=== PATIENT | male | born 1940 | race Caucasian/White ===

== ENCOUNTER 2016-03-29 01:57 | Inpatient (IN) | payer OTHER ==
[~2016-03-29] VITALS: Ht 157.5 cm; Wt 111.5 kg
[~2016-03-29 01:57] MED LIST: ASPIR-LOW81 MG PO; ASPIRIN EC325 MG PO; ASPIRIN325 MG PO; COUMADIN2 MG PO; FAMOTIDINE40 MG PO; FOSRENOL1000 MG PO; FUROSEMIDE40 MG PO; LANTUS 10100 UNITS/ SC; LASIX40 MG PO; LIPITOR80 MG PO; LISINOPRIL20 MG PO; LISINOPRIL40 MG PO; LOSARTAN POTASS25 MG PO; METOPROLOL SUC100 MG PO; METOPROLOL TART25 MG PO; NIFEDIPINE ER30 MG PO; NOVOLOG PE100 UNITS/ SC; PLAVIX75 MG PO; SENSIPAR30 MG PO; TOPROL XL100 MG PO; VITAMIN D31000 UNIT PO
[2016-03-29 03:01] LABS: BASOPHIL COUNT 0.1 K/uL (0-0.1); EOSINOPHIL (%) 4.4 % (0-5); EOSINOPHIL COUNT 0.1 K/uL (0-0.3); HEMATOCRIT 28.8 % (38.0-50.0); IMMATURE GRANULOCYTE (%) 0.3 % (0.0-0.7); IMMATURE GRANULOCYTE COUNT 0.1 K/uL; LYMPHOCYTE COUNT 0.5 K/uL (1.0-2.8); MCH 33.6 PG (29.0-34.0); MCHC 34.7 G/DL (30.0-36.0); MCV 96.6 FL (86-99); MONOCYTE (%) 13.9 % (3-12); MONOCYTE COUNT 0.4 K/uL (0-0.8); NEUTROPHIL (%) 63.1 % (45-76); NEUTROPHIL COUNT 1.9 K/uL (1.8-6.4); PLATELET COUNT 109 K/uL (156-360); RBC DIS.WIDTH-CV 12.9 % (11.8-14.6); RBC DIS.WIDTH-SD 43.4 % (39-53); RED BLOOD COUNT 2.98 M/uL (4.00-5.50)
[2016-03-29 03:10] LABS: CHLORIDE 94 mEq/L (99-109); POTASSIUM 4.3 mEq/L (3.7-5.4); SODIUM 136 mEq/L (136-147)
[2016-03-29 03:12] LABS: GLUCOSE 343 mg/dL (70-99)
[2016-03-29 03:14] LABS: ANION GAP 20 MEQ/L (2-14)
[2016-03-29 03:16] LABS: GFR ESTIMATE (CALCULATED) 8 mL/min/
[2016-03-29 03:17] LABS: UREA NITROGEN (BUN) 39 mg/dL (9-23)
[2016-03-29 03:22] LABS: TROP-I INTERPRETATION NEGATIVE; TROPONIN-I 0.15 ng/mL (0.0-0.30)
[2016-03-29 04:02] LABS: INFLUENZA A VIRAL ANTIGEN NEGATIVE; INFLUENZA B VIRAL ANTIGEN NEGATIVE
[2016-03-29 08:33] VITALS: BP 128/60
[2016-03-29 10:31] LABS: TROP-I INTERPRETATION NEGATIVE; TROPONIN-I 0.12 ng/mL (0.0-0.30)
[2016-03-29 11:38] LABS: POINT-OF-CARE METER ID UU13113725
[2016-03-29 15:54] LABS: POINT-OF-CARE METER ID UU13113681; POINT-OF-CARE USER ID DROKMM72
[2016-03-29 16:28] LABS: TROP-I INTERPRETATION NEGATIVE; TROPONIN-I 0.12 ng/mL (0.0-0.30)
[2016-03-29 18:08] LABS: POINT-OF-CARE METER ID UU13113717
[2016-03-29 19:51] VITALS: BP 119/56
[2016-03-29 20:57] LABS: POINT-OF-CARE METER ID UU13113725
[2016-03-29 23:46] VITALS: BP 112/56
[2016-03-30 03:38] VITALS: BP 110/54
[2016-03-30 05:52] LABS: POINT-OF-CARE METER ID UU13113717
[2016-03-30 07:00] LABS: ANION GAP 13 MEQ/L (2-14); CHLORIDE 98 MEQ/L (99-109); GFR ESTIMATE (CALCULATED) 10 mL/min/; SAMPLE HEMOLYSIS CHECK 0; SAMPLE ICTERIC CHECK 0; SAMPLE LIPEMIA CHECK 0; SODIUM 138 MEQ/L (136-147); UREA NITROGEN (BUN) 25 mg/dL (9-23)
[2016-03-30 07:03] LABS: MCH 32.6 PG (29.0-34.0); MCHC 33.7 G/DL (30.0-36.0); MCV 96.7 FL (86-99); MEAN PLAT.VOLUME 11.2 uM^3 (9.0-12.4); RBC DIS.WIDTH-CV 13.4 % (11.8-14.6); RBC DIS.WIDTH-SD 47.2 % (39-53)
[2016-03-30 07:08] LABS: GLUCOSE 111 mg/dL (70-99)
[2016-03-30 07:12] LABS: PLATELET COUNT 210 K/uL (156-360); RED BLOOD COUNT 3.93 M/uL (4.00-5.50); WHITE BLOOD COUNT 4.8 K/uL (4.1-10.2)
[2016-03-30 07:53] VITALS: BP 103/58
[2016-03-30 08:05] LABS: INTERNAL CONTROL VALID? YES
[2016-03-30 12:46] VITALS: BP 144/96
[2016-03-30 14:55] VITALS: BP 115/58
[2016-03-30 16:52] LABS: POINT-OF-CARE METER ID UU13113725
[2016-03-30 20:09] VITALS: BP 111/54
[2016-03-30 20:46] LABS: POINT-OF-CARE METER ID UU13113717
[2016-03-30 22:45] VITALS: BP 124/55
[2016-03-31 02:40] VITALS: BP 112/50
[2016-03-31 04:46] LABS: POINT-OF-CARE METER ID UU13113725
[2016-03-31 05:57] LABS: POINT-OF-CARE METER ID UU13113725
[2016-03-31 06:43] LABS: HEMATOCRIT 32.1 % (38.0-50.0); MCH 32.4 PG (29.0-34.0); MCHC 33.3 G/DL (30.0-36.0); MCV 97.3 FL (86-99); MEAN PLAT.VOLUME 10.5 uM^3 (9.0-12.4); PLATELET COUNT 197 K/uL (156-360); RBC DIS.WIDTH-CV 13.5 % (11.8-14.6); RBC DIS.WIDTH-SD 47.9 % (39-53); WHITE BLOOD COUNT 4.1 K/uL (4.1-10.2)
[2016-03-31 07:20] LABS: ANION GAP 13 MEQ/L (2-14); CHLORIDE 96 MEQ/L (99-109); GFR ESTIMATE (CALCULATED) 7 mL/min/; POTASSIUM 4.3 MEQ/L (3.7-5.4); SAMPLE HEMOLYSIS CHECK 0; SAMPLE ICTERIC CHECK 0; SAMPLE LIPEMIA CHECK 0; SODIUM 138 MEQ/L (136-147)
[2016-03-31 07:21] LABS: GLUCOSE 167 mg/dL (70-99); UREA NITROGEN (BUN) 49 mg/dL (9-23)
[2016-03-31 08:30] VITALS: BP 135/75
[2016-03-31 11:13] VITALS: BP 103/55
[2016-03-31 11:39] LABS: POINT-OF-CARE METER ID UU13113725
[2016-03-31 16:27] LABS: POINT-OF-CARE METER ID UU13113717
[2016-03-31 17:34] VITALS: BP 123/48
[2016-03-31 20:37] VITALS: BP 165/77
[2016-03-31 22:47] VITALS: BP 114/53
[2016-04-01 02:37] VITALS: BP 157/68
[2016-04-01 08:12] LABS: EOSINOPHIL (%) 8.8 % (0-5); EOSINOPHIL COUNT 0.4 K/uL (0-0.3); IMMATURE GRANULOCYTE (%) 0.4 % (0.0-0.7); LYMPHOCYTE COUNT 1.2 K/uL (1.0-2.8); MCH 32.3 PG (29.0-34.0); MCHC 33.9 G/DL (30.0-36.0); MCV 95.4 FL (86-99); MEAN PLAT.VOLUME 10.7 uM^3 (9.0-12.4); MONOCYTE (%) 9.7 % (3-12); MONOCYTE COUNT 0.4 K/uL (0-0.8); NEUTROPHIL COUNT 2.4 K/uL (1.8-6.4); PLATELET COUNT 217 K/uL (156-360); RBC DIS.WIDTH-CV 13.4 % (11.8-14.6); RBC DIS.WIDTH-SD 46.5 % (39-53); RED BLOOD COUNT 3.25 M/uL (4.00-5.50); WHITE BLOOD COUNT 4.5 K/uL (4.1-10.2)
[2016-04-01 08:24] LABS: ANION GAP 16 MEQ/L (2-14); CHLORIDE 98 MEQ/L (99-109); SAMPLE HEMOLYSIS CHECK 0; SAMPLE ICTERIC CHECK 0; SAMPLE LIPEMIA CHECK 0; SODIUM 137 MEQ/L (136-147)
[2016-04-01 08:35] LABS: GFR ESTIMATE (CALCULATED) 6 mL/min/; GLUCOSE 178 mg/dL (70-99); UREA NITROGEN (BUN) 70 mg/dL (9-23)
[2016-04-01] MEDS ORDERED: DOXYCYCLINE HY100 M3 PO (09:52)
[2016-04-01] MEDS ORDERED: CEFDINIR300 MG PO (09:52)
[2016-04-01 10:15] LABS: POINT-OF-CARE METER ID UU13113681; POINT-OF-CARE USER ID DROKMM72
[2016-04-01 12:24] VITALS: BP 129/61
[2016-04-01 16:36] LABS: POINT-OF-CARE METER ID UU13113725
[2016-04-01 16:48] VITALS: BP 131/61
[2016-04-01 20:08] LABS: POINT-OF-CARE METER ID UU13113725
[2016-04-01 23:17] VITALS: BP 114/57
[2016-04-02 07:57] VITALS: BP 106/49
== END 2016-04-02 14:18 | disposition home or self-care (01) | DRG 291 ==
LOC: EME 01:57 → EDOF 05:51 → 5EAST 07:43
PROVIDERS: Emergency Medicine; Hospitalist; Internal Medicine; Internal Medicine Nephrology; Nurse Practitioner Adult Health
PROC: 5A1D60Z (ICD-10-PCS; principal; 2016-03-29)
DX: I50.30 Unspecified diastolic (congestive) heart failure (principal); J18.9 Pneumonia, unspecified organism; I12.0 Hypertensive chronic kidney disease with stage 5 chronic kidney disease or end stage renal disease; N18.6 End stage renal disease; J20.9 Acute bronchitis, unspecified; R94.31 Abnormal electrocardiogram [ECG] [EKG]; E78.5 Hyperlipidemia, unspecified; Z95.1 Presence of aortocoronary bypass graft; I25.10 Atherosclerotic heart disease of native coronary artery without angina pectoris; E11.22 Type 2 diabetes mellitus with diabetic chronic kidney disease; D69.6 Thrombocytopenia, unspecified; D63.1 Anemia in chronic kidney disease; R07.9 Chest pain, unspecified; Z87.891 Personal history of nicotine dependence; Z99.2 Dependence on renal dialysis; Z79.82 Long term (current) use of aspirin
CPT/HCPCS: 71010; 71020; 80048; 80069; 82948; 83605; 83880; 84484; 85025; 85027; 87040; 87070; 87205; 87449; 87502; 93005; 94640; 94640 76; 94760; 94799; 99202; 99281; 99285; J0696; J1644; J1815; J7050

== ENCOUNTER 2016-05-05 14:23 | Observation (INO) | payer OTHER ==
[2016-05-05] VITALS (8 sets, daily range): BP systolic 142–200; BP diastolic 60–102
[~2016-05-05] VITALS: Ht 170.2 cm; Wt 107.8 kg
[~2016-05-05 14:23] MED LIST changes: +CEFDINIR300 MG PO; +DOXYCYCLINE HY100 M3 PO
[2016-05-05 15:28] LABS: HEMATOCRIT 32.9 % (38.0-50.0); MCHC 34.3 G/DL (30.0-36.0); MCV 96.2 FL (86-99); MEAN PLAT.VOLUME 10.4 uM^3 (9.0-12.4); PLATELET COUNT 222 K/uL (156-360); RBC DIS.WIDTH-CV 13.3 % (11.8-14.6); RBC DIS.WIDTH-SD 44.5 % (39-53); RED BLOOD COUNT 3.42 M/uL (4.00-5.50); WHITE BLOOD COUNT 8.6 K/uL (4.1-10.2)
[2016-05-05 15:38] LABS: CHLORIDE 96 mEq/L (99-109); POTASSIUM 4.2 mEq/L (3.7-5.4); SODIUM 140 mEq/L (136-147)
[2016-05-05 15:39] LABS: GLUCOSE 358 mg/dL (70-99)
[2016-05-05 15:41] LABS: ANION GAP 14 MEQ/L (2-14)
[2016-05-05 15:43] LABS: GFR ESTIMATE (CALCULATED) 7 mL/min/
[2016-05-05 15:44] LABS: UREA NITROGEN (BUN) 55 mg/dL (9-23)
[2016-05-05 15:49] LABS: TROP-I INTERPRETATION NEGATIVE; TROPONIN-I 0.09 ng/mL (0.0-0.30)
[2016-05-05] MEDS ORDERED: ZESTRIL40 MG PO (17:00)
[2016-05-05 17:58] LABS: BASE EXCESS 6.9 mEq/L (-3 to +3); BICARBONATE 33.3 mEq/L (22-26); CARBOXY HGB 1.5 % (0-5); PCO2 55 mm Hg (35-45); PO2 34 mm Hg (80-100); SITE RR; pH 7.39 (7.35-7.45)
[2016-05-05 17:59] LABS: COMMENTS - BLOOD GASES C+ VEONIUS SAMPLE; DEVICE NC; O2 FLOW 2 L/MIN; TOTAL RESP RATE 35 resp/min
[2016-05-05 18:45] LABS: POINT-OF-CARE METER ID UU13113700
[2016-05-05 21:48] LABS: POINT-OF-CARE METER ID UU13113700
[2016-05-06 01:05] LABS: TROP-I INTERPRETATION NEGATIVE; TROPONIN-I 0.12 ng/mL (0.0-0.30)
[2016-05-06 01:25] VITALS: BP 148/88
[2016-05-06 07:34] LABS: ANION GAP 15 MEQ/L (2-14); CHLORIDE 96 MEQ/L (99-109); POTASSIUM 4.1 MEQ/L (3.7-5.4); SAMPLE HEMOLYSIS CHECK 0; SAMPLE ICTERIC CHECK 0; SAMPLE LIPEMIA CHECK 0; SODIUM 140 MEQ/L (136-147)
[2016-05-06 07:37] LABS: HEMATOCRIT 31.9 % (38.0-50.0); MCHC 33.5 G/DL (30.0-36.0); MCV 95.5 FL (86-99); MEAN PLAT.VOLUME 10.7 uM^3 (9.0-12.4); PLATELET COUNT 224 K/uL (156-360); RBC DIS.WIDTH-CV 13.6 % (11.8-14.6); RBC DIS.WIDTH-SD 47.6 % (39-53); RED BLOOD COUNT 3.34 M/uL (4.00-5.50); WHITE BLOOD COUNT 9.1 K/uL (4.1-10.2)
[2016-05-06 07:39] LABS: GFR ESTIMATE (CALCULATED) 7 mL/min/; GLUCOSE 209 mg/dL (70-99); UREA NITROGEN (BUN) 59 mg/dL (9-23)
[2016-05-06 08:03] LABS: TROP-I INTERPRETATION NEGATIVE; TROPONIN-I 0.09 ng/mL (0.0-0.30)
[2016-05-06 08:17] VITALS: BP 160/74
[2016-05-06 16:32] LABS: TROP-I INTERPRETATION NEGATIVE; TROPONIN-I 0.09 ng/mL (0.0-0.30)
[2016-05-06 16:35] VITALS: BP 148/67
[2016-05-06 16:46] LABS: POINT-OF-CARE METER ID UU13113831
[2016-05-06 19:37] VITALS: BP 115/54
[2016-05-06 21:45] LABS: POINT-OF-CARE METER ID UU13113831
[2016-05-06 23:30] VITALS: BP 135/65
[2016-05-07 04:25] VITALS: BP 147/69
[2016-05-07 04:44] LABS: POINT-OF-CARE METER ID UU13113700
[2016-05-07 08:03] VITALS: BP 187/89
[2016-05-07 08:18] LABS: ANION GAP 11 MEQ/L (2-14); CHLORIDE 100 MEQ/L (99-109); GFR ESTIMATE (CALCULATED) 11 mL/min/; POTASSIUM 4.1 MEQ/L (3.7-5.4); SAMPLE HEMOLYSIS CHECK 0; SAMPLE ICTERIC CHECK 0; SAMPLE LIPEMIA CHECK 0; SODIUM 143 MEQ/L (136-147); UREA NITROGEN (BUN) 32 mg/dL (9-23)
[2016-05-07 08:21] LABS: GLUCOSE 112 mg/dL (70-99)
[2016-05-07 11:57] VITALS: BP 157/79
[2016-05-07 12:34] LABS: POINT-OF-CARE METER ID UU13113700
[2016-05-07] MEDS ORDERED: Procardia XL,Adalat PO (15:54)
[2016-05-07] MEDS ORDERED: PROCARDIA XL60 MG PO (15:55)
[2016-05-07 16:26] VITALS: BP 168/72
[2016-05-07 17:52] LABS: POINT-OF-CARE METER ID UU13113700
== END 2016-05-07 18:06 | disposition home or self-care (01) ==
LOC: EME 14:23 → EDOF 17:01 → 5WEST 17:01
PROVIDERS: Hospitalist; Internal Medicine; Nurse Practitioner Adult Health
PROC: 30233N1 Transfusion of Nonautologous Red Blood Cells into Peripheral Vein, Percutaneous Approach (ICD-10-PCS; principal; 2016-05-06)
DX: I13.2 Hypertensive heart and chronic kidney disease with heart failure and with stage 5 chronic kidney disease, or end stage renal disease (principal); I16.0 Hypertensive urgency; I50.33 Acute on chronic diastolic (congestive) heart failure; E11.22 Type 2 diabetes mellitus with diabetic chronic kidney disease; N18.6 End stage renal disease; Z99.2 Dependence on renal dialysis; D63.1 Anemia in chronic kidney disease; I25.10 Atherosclerotic heart disease of native coronary artery without angina pectoris; Z95.5 Presence of coronary angioplasty implant and graft; J98.4 Other disorders of lung; Z99.81 Dependence on supplemental oxygen; Z79.4 Long term (current) use of insulin; Z79.82 Long term (current) use of aspirin; Z79.02 Long term (current) use of antithrombotics/antiplatelets
CPT/HCPCS: 36600; 71020; 78582; 80048; 82803; 82948; 83880; 84484; 85027; 93005; 93306; 94799; 99281; 99285; A9540; A9567; G0378; G8987 GO CI; G8988 GO CH; J1270; J1644; J1756; J1815; J1940

== ENCOUNTER 2017-01-03 13:10 | Inpatient (IN) | payer OTHER ==
[~2017-01-03] VITALS: Ht 170.2 cm; Wt 106.3 kg
[~2017-01-03 13:10] MED LIST changes: +PROCARDIA XL60 MG PO; +Procardia XL,Adalat PO; +ZESTRIL40 MG PO
[2017-01-03 14:38] LABS: BASOPHIL COUNT 0.1 K/uL (0-0.1); EOSINOPHIL (%) 0.9 % (0-5); EOSINOPHIL COUNT 0.1 K/uL (0-0.3); HEMATOCRIT 37.7 % (38.0-50.0); IMMATURE GRANULOCYTE (%) 0.5 % (0.0-0.7); IMMATURE GRANULOCYTE COUNT 0.1 K/uL; INSTRUMENT ABS NEUTROPHIL CT 12.5 K/uL; LYMPHOCYTE COUNT 0.6 K/uL (1.0-2.8); MCH 32.2 PG (29.0-34.0); MCHC 33.7 G/DL (30.0-36.0); MCV 95.7 FL (86-99); MEAN PLAT.VOLUME 10.8 uM^3 (9.0-12.4); MONOCYTE (%) 8.5 % (3-12); MONOCYTE COUNT 1.2 K/uL (0-0.8); NEUTROPHIL (%) 85.4 % (45-76); NEUTROPHIL COUNT 12.5 K/uL (1.8-6.4); PLATELET COUNT 191 K/uL (156-360); RBC DIS.WIDTH-CV 12.9 % (11.8-14.6); RBC DIS.WIDTH-SD 45.1 % (39-53); RED BLOOD COUNT 3.94 M/uL (4.00-5.50); WHITE BLOOD COUNT 14.6 K/uL (4.1-10.2)
[2017-01-03 14:49] LABS: CHLORIDE 95 mEq/L (99-109); POTASSIUM 4.9 mEq/L (3.7-5.4); SODIUM 138 mEq/L (136-147)
[2017-01-03 14:50] LABS: GLUCOSE 325 mg/dL (70-99)
[2017-01-03 14:52] LABS: ANION GAP 17 MEQ/L (2-14)
[2017-01-03 14:54] LABS: GFR ESTIMATE (CALCULATED) 16 mL/min/
[2017-01-03 14:55] LABS: UREA NITROGEN (BUN) 17 mg/dL (9-23)
[2017-01-03 15:00] LABS: TROP-I INTERPRETATION NEGATIVE; TROPONIN-I 0.05 ng/mL (0.0-0.30)
[2017-01-03 18:20] LABS: TOTAL BILIRUBIN 0.8 mg/dL (0.0-1.0)
[2017-01-03 18:21] LABS: ALKALINE PHOSPHATASE 170 IU/L (3-129)
[2017-01-03 18:23] LABS: DIRECT BILIRUBIN 0.3 mg/dL (0.0-0.3)
[2017-01-03 18:27] LABS: ADD MIUA? YES; BILIRUBIN NEGATIVE; BLOOD SMALL; COLOR YELLOW ((YELLOW)); GLUCOSE (STRIP) >=500; KETONES NEGATIVE; LEUKOCYTES NEGATIVE; NITRITE NEGATIVE; PROTEIN (STRIP) >=500; SPECIFIC GRAVITY 1.018 (1.000-1.030); UROBILINOGEN 0.2 MG/DL (0.2-1.0)
[2017-01-03 18:33] LABS: BACTERIA NONE SEEN /HPF; EPITHELIAL CELLS RARE /HPF; HYALINE CASTS 0-5 /LPF; MUCUS TRACE /LPF; RED BLOOD CELLS 0-5 /HPF (0-5)
[2017-01-03] MEDS ORDERED: FAMOTIDINE40 MG PO (18:48)
[2017-01-03] MEDS ORDERED: NORVASC10 MG PO (18:49)
[2017-01-03] MEDS ORDERED: CARVEDILOL6.25 MG PO (18:51)
[2017-01-03] MEDS ORDERED: RENVELA800 MG PO (18:53)
[2017-01-03] MEDS ORDERED: PRESERVISION A1 EAC2 PO (18:54)
[2017-01-03 20:59] VITALS: BP 131/65
[2017-01-04 00:35] VITALS: BP 132/64
[2017-01-04 03:49] VITALS: BP 149/68
[2017-01-04 06:02] LABS: INFLUENZA A VIRAL ANTIGEN NEGATIVE; INFLUENZA B VIRAL ANTIGEN NEGATIVE
[2017-01-04 06:40] LABS: ANION GAP 9 MEQ/L (2-14); CHLORIDE 104 MEQ/L (99-109); GFR ESTIMATE (CALCULATED) 16 mL/min/; GLUCOSE 276 mg/dL (70-99); POTASSIUM 4.4 MEQ/L (3.7-5.4); SAMPLE HEMOLYSIS CHECK 0; SAMPLE ICTERIC CHECK 0; SAMPLE LIPEMIA CHECK 0; SODIUM 136 MEQ/L (136-147); UREA NITROGEN (BUN) 24 mg/dL (9-23)
[2017-01-04 07:10] VITALS: BP 112/56
[2017-01-04 07:40] LABS: RED BLOOD COUNT ND M/uL (4.00-5.50); WHITE BLOOD COUNT ND K/uL (4.1-10.2)
[2017-01-04 07:41] LABS: HEMATOCRIT ND % (38.0-50.0)
[2017-01-04 07:42] LABS: MCH ND PG (29.0-34.0); MCHC ND G/DL (30.0-36.0); MCV ND FL (86-99); RBC DIS.WIDTH-SD ND % (39-53)
[2017-01-04 07:43] LABS: NRBC (%) ND /100 WBC (0-0); RBC DIS.WIDTH-CV ND % (11.8-14.6)
[2017-01-04 08:12] LABS: POINT-OF-CARE METER ID UU14174225
[2017-01-04 08:14] LABS: HEMATOCRIT 27.8 % (38.0-50.0); MCH 32.3 PG (29.0-34.0); MCHC 32.4 G/DL (30.0-36.0); MCV 99.6 FL (86-99); MEAN PLAT.VOLUME 10.9 uM^3 (9.0-12.4); PLATELET COUNT 142 K/uL (156-360); RBC DIS.WIDTH-SD 47.6 % (39-53); WHITE BLOOD COUNT 14.7 K/uL (4.1-10.2)
[2017-01-04 08:20] LABS: RED BLOOD COUNT 2.79 M/uL (4.00-5.50)
[2017-01-04 12:01] LABS: POINT-OF-CARE METER ID UU13113717
[2017-01-04 16:44] VITALS: BP 143/68
[2017-01-04 17:36] LABS: POINT-OF-CARE METER ID UU14174225
[2017-01-04 19:02] LABS: Estimated Average Glucose 209 mg/dL (70-123); HEMOGLOBIN A1c (GLYCOHEMOGLOB) 8.9 % HGB (Below 5.7)
[2017-01-04 20:13] LABS: POINT-OF-CARE METER ID UU13113717
[2017-01-04 22:15] VITALS: BP 169/74
[2017-01-05 00:22] VITALS: BP 124/58
[2017-01-05 03:27] LABS: POINT-OF-CARE METER ID UU13113717
[2017-01-05 06:03] LABS: HEMATOCRIT 30.2 % (38.0-50.0); MCH 32.8 PG (29.0-34.0); MCHC 33.1 G/DL (30.0-36.0); MEAN PLAT.VOLUME 11.2 uM^3 (9.0-12.4); PLATELET COUNT 158 K/uL (156-360); RBC DIS.WIDTH-SD 46.8 % (39-53); RED BLOOD COUNT 3.05 M/uL (4.00-5.50); WHITE BLOOD COUNT 13.5 K/uL (4.1-10.2)
[2017-01-05 06:31] LABS: ANION GAP 12 MEQ/L (2-14); CHLORIDE 96 MEQ/L (99-109); GFR ESTIMATE (CALCULATED) 9 mL/min/; GLUCOSE 157 mg/dL (70-99); POTASSIUM 5.2 MEQ/L (3.7-5.4); SAMPLE HEMOLYSIS CHECK 0; SAMPLE ICTERIC CHECK 0; SAMPLE LIPEMIA CHECK 0; SODIUM 136 MEQ/L (136-147); UREA NITROGEN (BUN) 42 mg/dL (9-23)
[2017-01-05 07:40] VITALS: BP 118/65
[2017-01-05 08:25] LABS: POINT-OF-CARE METER ID UU13113717
[2017-01-05 09:24] LABS: INTERNAL CONTROL VALID? YES
[2017-01-05 12:08] LABS: POINT-OF-CARE METER ID UU13113717
[2017-01-05 16:07] VITALS: BP 142/63
[2017-01-05 17:05] LABS: POINT-OF-CARE METER ID UU13113717
[2017-01-05 20:29] VITALS: BP 139/63
[2017-01-05 21:05] LABS: POINT-OF-CARE METER ID UU13113717
[2017-01-05 22:36] LABS: METH RESISTANT S AUREUS PCR NEGATIVE (NEGATIVE)
[2017-01-05 22:41] LABS: PROBE CHECK PASS; SPECIMEN PROCESSING CONTROL PASS
[2017-01-05 23:57] VITALS: BP 134/63
[2017-01-06 07:25] VITALS: BP 148/72
[2017-01-06 08:04] LABS: HEMATOCRIT 27.7 % (38.0-50.0); MCH 32.3 PG (29.0-34.0); MCHC 33.6 G/DL (30.0-36.0); MCV 96.2 FL (86-99); MEAN PLAT.VOLUME 10.8 uM^3 (9.0-12.4); PLATELET COUNT 189 K/uL (156-360); RBC DIS.WIDTH-CV 12.8 % (11.8-14.6); RBC DIS.WIDTH-SD 44.4 % (39-53); RED BLOOD COUNT 2.88 M/uL (4.00-5.50); WHITE BLOOD COUNT 10.6 K/uL (4.1-10.2)
[2017-01-06 08:29] LABS: ANION GAP 16 MEQ/L (2-14); CHLORIDE 93 MEQ/L (99-109); POTASSIUM 4.9 MEQ/L (3.7-5.4); SAMPLE HEMOLYSIS CHECK 0; SAMPLE ICTERIC CHECK 0; SAMPLE LIPEMIA CHECK 0; SODIUM 134 MEQ/L (136-147)
[2017-01-06 08:35] LABS: GFR ESTIMATE (CALCULATED) 8 mL/min/; GLUCOSE 181 mg/dL (70-99); UREA NITROGEN (BUN) 57 mg/dL (9-23)
[2017-01-06 12:31] LABS: POINT-OF-CARE METER ID UU13113717
[2017-01-06 15:52] VITALS: BP 139/63
[2017-01-06 17:26] LABS: POINT-OF-CARE METER ID UU14174225
[2017-01-06 21:32] LABS: POINT-OF-CARE METER ID UU14174225
[2017-01-06 23:27] VITALS: BP 115/60
[2017-01-07 06:03] LABS: HEMATOCRIT 30.4 % (38.0-50.0); MCH 32.2 PG (29.0-34.0); MCHC 32.9 G/DL (30.0-36.0); MCV 97.7 FL (86-99); MEAN PLAT.VOLUME 10.6 uM^3 (9.0-12.4); PLATELET COUNT 214 K/uL (156-360); RBC DIS.WIDTH-SD 46.2 % (39-53); RED BLOOD COUNT 3.11 M/uL (4.00-5.50); WHITE BLOOD COUNT 7.9 K/uL (4.1-10.2)
[2017-01-07 07:04] LABS: POINT-OF-CARE METER ID UU14174225
[2017-01-07 07:12] VITALS: BP 161/67
[2017-01-07 11:24] LABS: POINT-OF-CARE METER ID UU14174225
[2017-01-07 15:10] VITALS: BP 137/66
[2017-01-07 16:46] LABS: POINT-OF-CARE METER ID UU13113717
[2017-01-07 20:39] LABS: POINT-OF-CARE METER ID UU14174225
[2017-01-07 23:40] VITALS: BP 132/63
[2017-01-08 06:55] LABS: POINT-OF-CARE METER ID UU14188625
[2017-01-08 07:10] VITALS: BP 166/72
[2017-01-08 08:19] LABS: BASOPHIL COUNT 0.1 K/uL (0-0.1); EOSINOPHIL (%) 7.1 % (0-5); EOSINOPHIL COUNT 0.4 K/uL (0-0.3); HEMATOCRIT 28.4 % (38.0-50.0); IMMATURE GRANULOCYTE (%) 3.4 % (0.0-0.7); IMMATURE GRANULOCYTE COUNT 0.2 K/uL; INSTRUMENT ABS NEUTROPHIL CT 3.7 K/uL; LYMPHOCYTE COUNT 0.7 K/uL (1.0-2.8); MCH 31.8 PG (29.0-34.0); MCHC 32.7 G/DL (30.0-36.0); MCV 97.3 FL (86-99); MEAN PLAT.VOLUME 10.7 uM^3 (9.0-12.4); MONOCYTE (%) 13.2 % (3-12); MONOCYTE COUNT 0.8 K/uL (0-0.8); NEUTROPHIL (%) 62.9 % (45-76); NEUTROPHIL COUNT 3.7 K/uL (1.8-6.4); PLATELET COUNT 249 K/uL (156-360); RBC DIS.WIDTH-CV 12.7 % (11.8-14.6); RBC DIS.WIDTH-SD 45.3 % (39-53); RED BLOOD COUNT 2.92 M/uL (4.00-5.50); WHITE BLOOD COUNT 5.9 K/uL (4.1-10.2)
[2017-01-08 08:35] LABS: ANION GAP 12 MEQ/L (2-14); CHLORIDE 98 MEQ/L (99-109); POTASSIUM 4.7 MEQ/L (3.7-5.4); SAMPLE HEMOLYSIS CHECK 0; SAMPLE ICTERIC CHECK 0; SAMPLE LIPEMIA CHECK 0; SODIUM 135 MEQ/L (136-147)
[2017-01-08 08:43] LABS: GFR ESTIMATE (CALCULATED) 10 mL/min/; UREA NITROGEN (BUN) 42 mg/dL (9-23)
[2017-01-08 08:44] LABS: GLUCOSE 323 mg/dL (70-99)
[2017-01-08] MEDS ORDERED: LINEZOLID600 MG PO (13:04)
[2017-01-08 13:08] LABS: POINT-OF-CARE METER ID UU13113717
== END 2017-01-08 14:45 | disposition home or self-care (01) | DRG 871 ==
LOC: EME 13:10 → EDOF 18:25 → 5SOUTH 18:25 → ENRESERV 18:26 → 5SOUTH 20:46
PROVIDERS: Emergency Medicine; Hospitalist; Internal Medicine; Internal Medicine Nephrology
PROC: 0H9KX0Z Drainage of Right Lower Leg Skin with Drainage Device, External Approach (ICD-10-PCS; principal; 2017-01-06)
DX: A41.9 Sepsis, unspecified organism (principal); J18.9 Pneumonia, unspecified organism; N18.6 End stage renal disease; L02.415 Cutaneous abscess of right lower limb; I12.0 Hypertensive chronic kidney disease with stage 5 chronic kidney disease or end stage renal disease; I25.2 Old myocardial infarction; E66.9 Obesity, unspecified; Z60.2 Problems related to living alone; E87.2 Acidosis; Z95.1 Presence of aortocoronary bypass graft; I50.30 Unspecified diastolic (congestive) heart failure; Z86.73 Personal history of transient ischemic attack (TIA), and cerebral infarction without residual deficits; Z80.42 Family history of malignant neoplasm of prostate; Z80.3 Family history of malignant neoplasm of breast; Z79.4 Long term (current) use of insulin; Z87.891 Personal history of nicotine dependence; Z95.5 Presence of coronary angioplasty implant and graft; Z99.2 Dependence on renal dialysis; L03.115 Cellulitis of right lower limb; M19.90 Unspecified osteoarthritis, unspecified site; N40.0 Benign prostatic hyperplasia without lower urinary tract symptoms; I25.10 Atherosclerotic heart disease of native coronary artery without angina pectoris; D63.1 Anemia in chronic kidney disease; E11.22 Type 2 diabetes mellitus with diabetic chronic kidney disease; E78.5 Hyperlipidemia, unspecified; I48.0 Paroxysmal atrial fibrillation; J92.0 Pleural plaque with presence of asbestos; Z83.6 Family history of other diseases of the respiratory system; Z68.36 Body mass index [BMI] 36.0-36.9, adult
CPT/HCPCS: 71010; 71250; 74176; 80048; 80069; 80076; 80202; 81003; 82948; 83036; 83605; 83880; 84484; 85025; 85027; 87040; 87070; 87075; 87077; 87086; 87147; 87186; 87205; 87449; 87502; 87641; 93970; 94799; 99281; 99285; J0690; J0692; J1270; J1644; J1815; J2405; J2543; J3370; J7030; J7040; J7050

== ENCOUNTER 2017-08-24 20:27 | Emergency (ER) | payer OTHER ==
[~2017-08-24] VITALS: Ht 170.2 cm; Wt 112.6 kg
[~2017-08-24 20:27] MED LIST changes: +CARVEDILOL6.25 MG PO; +LINEZOLID600 MG PO; +NORVASC10 MG PO; +PRESERVISION A1 EAC2 PO; +RENVELA800 MG PO
[2017-08-24 21:15] LABS: HEMATOCRIT 36.8 % (38.0-50.0); HEMOGLOBIN 12.8 G/DL (12.5-16.6); MCH 33.3 PG (29.0-34.0); MCHC 34.8 G/DL (30.0-36.0); MCV 95.8 FL (86-99); RBC DIS.WIDTH-CV 13.6 % (11.8-14.6); RBC DIS.WIDTH-SD 47.6 % (39-53); RED BLOOD COUNT 3.84 M/uL (4.00-5.50); WHITE BLOOD COUNT 11.3 K/uL (4.1-10.2)
[2017-08-24 21:21] LABS: CHLORIDE 96 mEq/L (99-109)
[2017-08-24 21:22] LABS: SODIUM 138 mEq/L (136-147)
[2017-08-24 21:23] LABS: GLUCOSE 244 mg/dL (70-99)
[2017-08-24 21:27] LABS: CREATININE 7.9 mg/dL (0.6-1.3); GFR ESTIMATE (CALCULATED) 7 mL/min/ (58.99-99999)
[2017-08-24 21:28] LABS: UREA NITROGEN (BUN) 55 mg/dL (9-23)
[2017-08-24 21:35] LABS: TROP-I INTERPRETATION NEGATIVE; TROPONIN-I 0.05 ng/mL (0.0-0.30)
[2017-08-24 21:41] LABS: INTER. NORMALIZED RATIO 1.2
[2017-08-24 22:03] LABS: PLAT.SUFFICIENCY DECREASED; PLATELET COUNT 143 K/uL (156-360)
[2017-08-24] MEDS ORDERED: LEVAQUIN750 MG PO (23:11)
[2017-08-24] MEDS ORDERED: ULTRAM50 MG PO (23:11)
[2017-08-24 23:22] VITALS: BP 150/97
== END 2017-08-24 23:35 | disposition home or self-care (01) ==
LOC: EME 20:27
PROVIDERS: Emergency Medicine
DX: J18.9 Pneumonia, unspecified organism (principal); M54.9 Dorsalgia, unspecified; I13.0 Hypertensive heart and chronic kidney disease with heart failure and stage 1 through stage 4 chronic kidney disease, or unspecified chronic kidney disease; E11.22 Type 2 diabetes mellitus with diabetic chronic kidney disease; N18.9 Chronic kidney disease, unspecified; I50.9 Heart failure, unspecified; I48.91 Unspecified atrial fibrillation; Z99.2 Dependence on renal dialysis; D64.9 Anemia, unspecified; I25.2 Old myocardial infarction; I25.10 Atherosclerotic heart disease of native coronary artery without angina pectoris; Z86.73 Personal history of transient ischemic attack (TIA), and cerebral infarction without residual deficits; Z95.1 Presence of aortocoronary bypass graft; Z79.4 Long term (current) use of insulin; Z87.891 Personal history of nicotine dependence
CPT/HCPCS: 71046; 71250; 80048; 84484; 85027; 85027 GA; 85610; 93005; 99281; 99285